=== PATIENT | male | born 1960 | race Caucasian/White ===

== ENCOUNTER → 2019-10-22 08:29 | Outpatient (CLI) | payer OTHER, SELFPAY ==
[2019-10-22 10:48] LABS: Anion Gap 7 (5-15); BUN 18 mg/dL (7-18); BUN/Creat Ratio 21.2 RATIO (10-20); Calcium,Total 9.1 mg/dL (8.5-10.1); Chloride 102 mmol/L (98-107); Cholesterol 145 mg/dL (200); Creatinine, Serum 0.85 mg/dL (0.70-1.30); EST Glomerular Filtration Rate 98 mL/min (>60); Est Glom Filt Rate - Afr Amer 119 mL/min (>60); Glucose 74 mg/dL (74-106); High Density Lipoprotein 32 mg/dL; PSA,Total - Annual Screen 1.41 ng/mL (0.00-4.00); Potassium 5.2 mmol/L (3.5-5.1); Sodium Level 138 mmol/L (136-145); Triglycerides 124 mg/dL; Very Low Density Lipoprotein 25 mg/dL (5-40)
== END ==
PROVIDERS: Family Provider Family Medicine; PCP Family Medicine; Referring Provider Family Medicine; Visit Provider Family Medicine
DX: Z00.00 Encounter for general adult medical examination without abnormal findings (principal); Z12.5 Encounter for screening for malignant neoplasm of prostate
CPT/HCPCS: 36415; 80048; 80061; 84153; G0103

== ENCOUNTER → 2021-07-01 08:14 | Outpatient (CLI) | payer OTHER, SELFPAY ==
[2021-07-01 10:53] LABS: Anion Gap 4 (5-15); BUN 14 mg/dL (7-18); BUN/Creat Ratio 19.5 RATIO (10-20); Calcium,Total 8.6 mg/dL (8.5-10.1); Chloride 103 mmol/L (98-107); Cholesterol 146 mg/dL (200); Creatinine, Serum 0.72 mg/dL (0.70-1.30); EST Glomerular Filtration Rate 119 mL/min (>60); Est Glom Filt Rate - Afr Amer 144 mL/min (>60); Glucose 78 mg/dL (74-106); High Density Lipoprotein 33 mg/dL; Potassium 4.4 mmol/L (3.5-5.1); Sodium Level 137 mmol/L (136-145); Triglycerides 83 mg/dL; Very Low Density Lipoprotein 17 mg/dL (5-40)
== END ==
PROVIDERS: PCP Family Medicine; Visit Provider Family Medicine
DX: Z13.1 Encounter for screening for diabetes mellitus (principal); Z13.220 Encounter for screening for lipoid disorders; Z12.5 Encounter for screening for malignant neoplasm of prostate
CPT/HCPCS: 36415; 80048; 80061; 84153; G0103

== ENCOUNTER → 2022-07-18 | Outpatient (CLI) | payer OTHER, SELFPAY | END | disposition home or self-care (01) | LOC: MFPLAB 12:24 | PROVIDERS: PCP Family Medicine; Visit Provider Family Medicine | DX: D58.2 Other hemoglobinopathies (principal) ==

== ENCOUNTER → 2022-08-29 | Outpatient (CLI) | payer OTHER, SELFPAY ==
--- NOTE | 2022-08-29 09:20 | US_ITS ---
EXAM: US ABDOMEN LIMITED, SPLEEN CLINICAL INDICATION: POLYCYTHEMIA POLYCYTHEMIA TECHNIQUE: Real-time ultrasound of the spleen with image documentation. This report was created using [employer] report generation technology. COMPARISON: Renal ultrasound 08/29/2022. FINDINGS: SPLEEN: The spleen measures 14.8 x 6.3 x 13.2 cm. There are no demonstrated space-occupying lesions in the spleen. There is no evidence for splenic infarction. US/Spleen IMPRESSION: Moderate splenomegaly. The spleen otherwise appears normal. Electronically Signed: Jonny Ponce MD at 2:54 EDT ,
--- NOTE | 2022-08-29 09:20 | US_ITS ---
EXAM: US renal. HISTORY: POLYCYTHEMIA -- KIDNEYS TECHNIQUE: US Kidney(s) complete (eg, kidneys and bladder) COMPARISON: None. LIMITATIONS: None. RIGHT KIDNEY Size: 10 cm in length. Echogenicity: Normal. Parenchymal thickness: Normal. Hydronephrosis: None. Calculi: None. Cysts/masses: None. LEFT KIDNEY Size: 12.1 cm in length. Echogenicity: Normal. Parenchymal thickness: Normal. Hydronephrosis: None. Calculi: None. Cysts/masses: None. BLADDER: Mild wall thickening may be secondary to underdistention. Ureteral jets not visualized bilaterally. OTHER: None. CONCLUSION: No significant abnormality. Electronically Signed: Leroy Moncada MD at 5:10 EDT , US/Kidney and Bladder IMPRESSION: undefined
== END | disposition home or self-care (01) ==
LOC: US 09:20
PROVIDERS: PCP Family Medicine; Referring Provider Internal Medicine Hematology & Oncology; Visit Provider Internal Medicine Hematology & Oncology
DX: D75.1 Secondary polycythemia (principal); R16.1 Splenomegaly, not elsewhere classified
CPT/HCPCS: 76705; 76770

== ENCOUNTER → 2023-02-13 | Outpatient (CLI) | payer OTHER, SELFPAY ==
[2023-02-13 09:08] LABS: Cholesterol 116 mg/dL (200); High Density Lipoprotein 42 mg/dL; Triglycerides 54 mg/dL; Very Low Density Lipoprotein 11 mg/dL (5-40)
== END | disposition home or self-care (01) ==
LOC: PAVLAB 08:13
PROVIDERS: PCP Family Medicine; Referring Provider Family Medicine; Visit Provider Family Medicine
DX: Z13.220 Encounter for screening for lipoid disorders (principal)
CPT/HCPCS: 36415; 80061

== ENCOUNTER → 2024-01-31 | Outpatient (CLI) | payer OTHER, SELFPAY ==
--- NOTE | 2024-01-31 15:22 | RAD_ITS ---
STUDY: X-RAY - RIGHT HAND, ATTENTION FIFTH FINGER REASON FOR EXAM: Male, 63 years old. Right little finger contusion. TECHNIQUE: 3 views of the right fifth finger were obtained. COMPARISON: None. FINDINGS: Normal metacarpal head. Normal metacarpophalangeal joint. Normal proximal phalanx. Normal middle phalanx. There is a fracture of the tuft of the distal phalanx of the fifth finger, with 1 mm posterior displacement. Normal proximal interphalangeal joint. Normal distal interphalangeal joint. There is soft tissue swelling of the fifth finger. RAD/Finger(s) Min 2 Views IMPRESSION: Fracture of the tuft of the distal phalanx of the fifth finger, with 1 mm posterior displacement. Electronically Signed: Benji Celis MD at 15:35 EST ,
--- OUTSIDE RECORDS SUMMARY | 2024-01-31 20:02 | XMS RPT_ITS | CCD ---
Author Name Unknown Address [address] [place] [id number] Organization [facility] Care Team Providers Care Content Developer Name Role Phone AUGUSTO DIALLO Primary Care Unavailable YEVGENIY COBURN Referring AUGUSTO Velasco Primary Care Unavailable YEVGENIY COBURN Attending Unavailabl e Allergies Allergy Classification Reported Allergen(s) Allergy Type Date of Onset Reaction(s) Facility (1 source) BEE VENOM PROTEIN (HONEY BEE); Translations: [BEE VENOM PROTEIN (HONEY BEE)] Propensity to adverse reactions to drug (disorder) 2 [facility] Repository Problems Problem Classification Problem Date Documented Date Episodic/Chronic Neoplasms of unspecified nature or uncertain behavior (1 source) Chronic myeloproliferative disease; Translations: [MPN (myeloproliferative neoplasm) (HCC)] Onset: 2 Episodic Results Test Name Value Interpretation Reference Range Facil ity Encounters Encounter Date Encounter Type Care Provider Facility Start: 11-08-2022 End: 11-09-2022 ambulatory AUGUSTO DIALLO Facility:[facility] Payers Date Payer Category Payer Unknown [id number] 2019 Unknown [id number] Progress note 11-08-2022 Note Date & Type Note Facility 11-08-2022 Note HNO ID: [id number] Author: Yevgeniy Judge MD Service: ? Author Type: Physician Type: Progress Notes Filed: 11/08/2022 1:50 PM Note Text: Initial Consult Note/ New Patient Note [facility] [place] Nando Linda ID: [id number] 11/08/2022 REFERRING PHYSICIAN: SUSIE PRIMARY CARE PHYSICIAN: Augusto Diallo DO Chief Complaint: Chief Complaint Consult History Of Present Illness: (4 elements) Mr. Nando Linda is a 62 year old male presenting to clinic for: PCV. He has some fatigue towards the end of the day, . He has some pain in the hips. The pain is present when he sleeps, worse on his side, mild but wakes him up. He has not taken anything for the pain. Hematolgic/Oncologic Hx: Previous hx obtained from OSH record from [facility], Paloma Valerio NP and Dr. Vernon Dorado - 07/18/2022: WBC 19, neutrophils 16.4, hemoglobin 21.9, hematocrit 64, MCV 91, platelets 463 . Patient presented for evaluation after being found to have elevated WBC, Hb and platelets when he was going to donate blood. - 08/17/2022: Myeloproliferative panel on peripheral blood; no BCR ABL, positive for JAK2 V617F mutation V617F. WBC 21.3 K/microL, Hb 22.1 g/dL - 08/29/2022: abdominal ultrasound splenomegaly 14.8 cm. - 09/11/2022: patient started phlebotomy, received total of 4 last on 10/10 - 10/25/2022: WBC: 15.1 K/microL, ANC 12.8 K/microL, Hb 16.7 g/dL, platelets 492 K/microL. Ferritin 15 ng/mL - 10/2022: patient prescribed hydroxyurea 500 mg every day but has not started Past Mx/ Sx/ FHx/ SOC Hx: PAST MEDICAL HISTORY Diagnosis Date Polycythemia rubra vera (HCC) ALLERGIES Allergen Reactions Bee Venom Protein (* Unknown PAST SURGICAL HISTORY Procedure Laterality Date TONSILLECTOMY AND ADENOIDECTOMY VASECTOMY FAMILY HISTORY Problem Relation Age of Onset Colon Cancer Mother 6 years ago size of nickel Prostate Cancer Brother Social History Tobacco Use Smoking status: Never Smokeless tobacco: Never Substance Use Topics Alcohol use: No Drug use: No # PMHx, PSHx, FHx and SHx were reviewed and updated as needed. Review Of Systems: (10 elements) Constitutional: No fever, no chills, positive fatigue, no anorexia Skin: facial rash, no pruritis, no discoloration, no abnormal pigmentation Eyes: No visual disturbance, no itching, no burning ENMT: No loss of hearing, no otalgia, no tinnitus, no epistaxis, no odynophagia, no dysphagia, no congestion, no drainage, no neck pain, no neck stiffnes. Respiratory: No cough, no sputum production, no hemoptysis, no dyspnea, no wheezing Cardiovascular: No chest pain, no palpitations, no orthopnea, no PND Gastrointestinal: No abdominal pain, no nausea, no emesis, no diarrhea, no constipation, no hematemesis, no hematochezia, no melena. Gentiurinary: No dysuria, no hematuria, positive urinary frequency, no urinary urgency, no urinary incontinence, positive nocturia Neurological: No headache, no confusion, occasional, short lasting dizziness, no gait imbalance, positive numbness, no focal weakness, no tremors Psychiatry: No abnormal insight, no change in mental status Musculoskeletal: No arthralgia, no myalgia, no muscle stiffness. Endocrine: positive unexpected weight change (4 pounds weight loss over last month), no polyuria, no polydipsia, no polyphagia. Hematological/ Lymphatic: No bleeding, mild bruising, no lymphoadenopathy Current Medications: aspirin, enteric coated (ASPIRIN, ENTERIC COATED) 81 mg EC tablet Take by mouth. Cholecalciferol, Vitamin D3, 50 mcg (2,000 unit) cap Take by mouth. coenzyme Q10 30 mg capsule Take by mouth. Zinc Gluconate 50 mg tablet Take by mouth. Physical Exam: (2 bullets in 9 areas) BP 115/70 Pulse (!) 55 Temp 36.7 ?C (98 ?F) (Oral) Resp 17 Ht 172.7 cm (5' 8 ) Wt 57.5 kg (126 lb 11.2 oz) SpO2 100% BMI 19.26 kg/m? Performance Status: 0- Fully active, able to carry on all pre-disease performance w/o restriction. General appearance: alert, in no acute distress Skin: No rashes, no lumps Head: normocephalic, atraumatic Eyes/ Oropharynx: Anicteric sclera. Pupils are equally round and reactive to light. Extraocular movements are intact. Oropharynx: MMM Neck: Supple, no adenopathy; no bruits Lungs: clear to auscultation, no wheezing or rhonchi Heart: RRR without murmur, gallop, or rubs. No ectopy Abdomen: Abdomen soft, no tenderness. Bowel sounds normal. No masses, positive splenomegaly 1-2 inches below costal line Extremities: Extremities normal. No deformities or edema. Neuro: Oriented X 3, non-focal Psych: normal insight, normal perception, normal affect Hem/Lymph: No lymphoadenopathy, no splenomegaly. Labs Imaging/ Pathology Reports: CBC Latest Ref Rng AND Units 11/08/2022 WBC 3.70 - 11.00 k/uL 14.01(H) RBC 4.20 - 6.00 m/uL 6.18(H) HEMOGLOBIN 13.0 - 17.0 g/dL 17.6(H) HEMATOCRIT 39.0 - 51.0 % 53.4(H) MCV (more content not included)... [facility] Summary Purpose Family History No Family History Records Found Advance Directives No Advanced Directives Records Found Additional Source Comments (unrecognized sect ion and content) No Status Records Found INFORMATION SOURCE (unrecogn ized section and content) FOR RECORDS PERTAINING TO PATIENTS WHO ARE OR HAVE BEEN ENROLLED IN A CHEMICAL DEPENDENCY/SUBSTANCEABUSE PROGRAM, SOME INFORMATION MAY BE OMITTED. This clinical summary was aggregated from multiple sources. Caution should be exercised in using it in the provision of clinical care. This summary normalizes information from multiple sources, and as a consequence, information in this document may materially change the coding, format and clinical context of patient data. In addition, data may be omitted in some cases. CLINICAL DECISIONS SHOULD BE BASED ON THE PRIMARY CLINICAL RECORDS. [employer] provides no warranty or guarantee of the accuracy or completeness of information in this document.
== END | disposition home or self-care (01) ==
LOC: MTRAD 15:11
PROVIDERS: PCP Family Medicine; Referring Provider Physician Assistant Surgical; Visit Provider Physician Assistant Surgical
DX: S60.051A Contusion of right little finger without damage to nail, initial encounter (principal); X58.XXXA Exposure to other specified factors, initial encounter
CPT/HCPCS: 73140

== ENCOUNTER → 2024-02-15 | Outpatient (CLI) | payer OTHER, SELFPAY ==
--- NOTE | 2024-02-15 15:11 | RAD_ITS ---
STUDY: X-RAY - RIGHT HAND, ATTENTION FIRST FINGER REASON FOR EXAM: Male, 63 years old. Known fracture TECHNIQUE: 3 view(s) of the finger were obtained. COMPARISON: None. FINDINGS: Previously noted fractures in the distal phalanx of the fifth finger are again noted. Little significant healing has occurred since the previous study. Continued follow-up recommended to ensure complete osseous union. RAD/Finger(s) Min 2 Views IMPRESSION: Little significant healing has occurred in previous seen noted fractures in the distal phalanx of the fifth finger. Follow-up recommended to show complete osseous union Electronically Signed: Cem Green MD at 19:37 EDT ,
== END | disposition home or self-care (01) ==
LOC: MTRAD 14:32
PROVIDERS: PCP Family Medicine; Referring Provider Physician Assistant Surgical; Visit Provider Physician Assistant Surgical
DX: S62.602A Fracture of unspecified phalanx of right middle finger, initial encounter for closed fracture (principal); X58.XXXA Exposure to other specified factors, initial encounter
CPT/HCPCS: 73140

== ENCOUNTER → 2024-10-17 | Outpatient (CLI) | payer OTHER, SELFPAY ==
--- NOTE | 2024-10-17 13:19 | MRI_ITS ---
STUDY: MR PROSTATE GLAND/ PELVIS WITH T WITHOUT CONTRAST REASON FOR EXAM: Male, 64 years old. ELEVATED PSA TECHNIQUE: Standardized fat and water weighted pulse sequences were obtained in all 3 orthogonal planes, pre-and post contrast administration. IV Yes was administered for the contrast portion of the examination. COMPARISON: Kidney ultrasound dated August 29, 2022. FINDINGS: Prostate gland volume/size: 2.99 x 4.25 x 4.14 cm. Anterior fibromuscular stroma: Normal Peripheral zone: A few linear fibrotic strands are present in both peripheral zones but no solid nodule or mass or enhancing lesion is visualized. Central zone: Diffusely heterogeneous with intermediate to low signal nodules and tiny intervening cysts consistent with BPH/hyperplasia/sequela of prostatitis. Diffuse postcontrast enhancement is demonstrated. No focal diffusion weighted signal is seen to indicate neoplasm. Transitional zone: Diffusely heterogeneous with intermediate to low signal nodules and tiny intervening cysts consistent with BPH/hyperplasia/sequela of prostatitis. Diffuse postcontrast enhancement is demonstrated. No focal diffusion weighted signal is seen to indicate neoplasm. Prostate capsule: Intact Seminal vesicles: Normal bilaterally Pelvic sidewall lymphadenopathy: No pelvic lymphadenopathy is present. Bony structures: Diffusely patchy signal throughout the bony structures with Red cell reactivation is likely due to the patient''s underlying hematologic status, but should be correlated with a nuclear medicine bone scan for possible malignancy. Small enhancing sclerotic foci are present in the bilateral femoral head neck junctions which asked to be differentiated from AVN or metastasis. Assessment for multiple myeloma is also recommended. Normal urinary bladder. Normal visualized small intestine. Normal visualized colon. There is no pelvic fluid. There is no pelvic mass lesion or lymphadenopathy. Normal abdominal wall. MRI/Pelvis W/WO Contrast IMPRESSION: 1. Diffusely heterogeneous with intermediate to low signal nodules and tiny intervening cysts consistent with BPH/hyperplasia/sequela of prostatitis. Diffuse postcontrast enhancement is demonstrated. No focal diffusion weighted signal is seen to indicate neoplasm. 2. PI-RADS 3: intermediate (the presence of clinically significant cancer is equivocal) 3. Bony structures: Diffusely patchy signal throughout the bony structures with Red cell reactivation is likely due to the patient''s underlying hematologic status, but should be correlated with a nuclear medicine bone scan for possible malignancy. Small enhancing sclerotic foci are present in the bilateral femoral head neck junctions which asked to be differentiated from AVN or metastasis. Assessment for multiple myeloma is also recommended. 4. Targeted image guided biopsy of nodules or air of interest can be performed for definitive pathologic assessment of the tissue and diagnosis 5. Prostate PET/CT exam can also be performed to determine if there is viable malignant neoplasm in the prostate gland. Prostate MRI reference: 15-30% of prostate cancers can go undetected on Prostate MRI. Monitoring and assessment by Primary physician, Urology, and oncology service recommended and treated clnically. (Cancers ([place]). 2022Nov 07;15(94):5961. doi: [id number] Prostate Cancers Invisible on Multiparametric MRI: Pathologic Features in Correlation with Whole-Mount Prostatectomy Alex Bunn 1,2,*, Khalif Ko 3, Danielle Ramirez 1,2, Shayla Cody 1,2, Brianna Lee 4, Benji Franz 5, Saul العراقي 6, Farrukh Meléndez 1,2, Pablo Bustillos 1,2) Reference information: Normal prostate tissue Benign prostatic hypertrophy cancer/tumor - low signal peripheral , transitional, and central zones malignancy appears as bright on DWI and low signal on ADC map Prostate imaging-reporting and data system (PI-RADS) PI-RADS 1: very low (clinically significant cancer is highly unlikely to be present) PI-RADS 2: low (clinically significant cancer is unlikely to be present) PI-RADS 3: intermediate (the presence of clinically significant cancer is equivocal) PI-RADS 4: high (clinically significant cancer is likely to be present) PI-RADS 5: very high (clinically significant cancer is highly likely to be present) PI-RADS X: component of exam technically inadequate or not performed Prostate malignancy distribution: Peripheral zone: 70-80% Transitional zone: 10-20% Central zone: 5% or less Electronically Signed: Karan Cuadra MD at 16:49 EST ,
--- NOTE | 2024-10-17 13:40 | RAD_ITS ---
STUDY: X-RAY - ORBITS REASON FOR EXAM: Male, 64 years old. STAT MRI CLEARANCE TECHNIQUE: 2 view(s) of the orbits were obtained. COMPARISON: None. FINDINGS: Normal bilateral orbits without a metallic orbital foreign body. Normal visualized facial bones. Normal paranasal sinuses. The soft tissue structures are unremarkable. RAD/Orbits for Foreign Body IMPRESSION: No demonstrated metallic orbital foreign body. The patient is cleared for an MRI examination. Electronically Signed: Jordan Crabtree MD at 14:07 EST ,
[2024-10-17 14:15] LABS: CREATININE FINGERSTICK < 1.0 mg/dL (0.70-1.30); EGFR FINGERSTICK > 60.0000 mL/min (>60)
== END | disposition home or self-care (01) ==
LOC: MRI 13:16
PROVIDERS: PCP Family Medicine; Referring Provider Urology; Visit Provider Urology
DX: R97.20 Elevated prostate specific antigen [PSA] (principal)
CPT/HCPCS: 70030; 72197; A9575

== ENCOUNTER → 2025-04-21 | Outpatient (CLI) | payer OTHER, SELFPAY ==
[2025-04-21 13:46] LABS: PSA,Total- Diagnostic 5.35 ng/mL (0.00-4.00)
== END | disposition home or self-care (01) ==
LOC: PAVLAB 13:09
PROVIDERS: PCP Family Medicine; Referring Provider Urology; Visit Provider Urology
DX: R97.20 Elevated prostate specific antigen [PSA] (principal)
CPT/HCPCS: 36415; 84153